=== PATIENT | female | born 1990 | race African-American/Black ===

== ENCOUNTER 2017-10-27 16:18 | Emergency (ER) | payer MEDICAID ==
[~2017-10-27] VITALS: Ht 167.6 cm; Wt 91.0 kg
[2017-10-27 17:27] VITALS: BP 119/68
== END 2017-10-27 19:04 | disposition left against medical advice (07) ==
LOC: ER 17:52
DX: Z53.21 Procedure and treatment not carried out due to patient leaving prior to being seen by health care provider (principal)